=== PATIENT | male | born 1945 | race Caucasian/White ===

== ENCOUNTER 2019-01-01 06:16 | Observation (INO) ==
[2019-01-01] MEDS ORDERED: Nitroglycerin 0.4 MG TAB.SUBL SL STA (06:25)
[2019-01-01] MEDS ORDERED: Ondansetron 4 MG/2 ML VIAL IVP ONE ×2 (06:25→13:53)
[2019-01-01 09:00] LABS: INR 1.3; Prothrombin Time 15.2 Seconds (9.4-12.1)
[2019-01-01 09:08] LABS: Basophils % 0.2 %; Eosinophils # 0.1 K/mcL (0.0-0.6); Eosinophils % 0.8 %; Hemoglobin 13.5 g/dL (12.9-16.9); Immature Granulocytes % 0.5 % (0-4); Lymphocytes # 1.5 K/mcL (0.6-4.6); Lymphocytes % 12.8 %; Mean Corpuscular HGB Conc 35.5 g/dL (31.6-35.5); Mean Corpuscular Hemoglobin 34.2 pg (28.0-33.3); Mean Corpuscular Volume 96.2 fL (83.0-100.0); Monocytes # 0.7 K/mcL (0.0-1.3); Neutrophils # 9.2 K/mcL (1.6-8.9); Platelet Count 180 K/mcL (140-400); Red Blood Count 3.95 M/mcL (4.19-5.50); Red Cell Distribution Width 12.2 % (11.5-14.5); Segmented Neutrophils % 79.7 %; White Blood Count 11.6 K/mcL (4.3-11.1)
[2019-01-01 09:13] LABS: BUN/Creatinine Ratio 19 (6-26); Blood Urea Nitrogen 17 mg/dL (8-23); Calcium 9.4 mg/dL (8.6-10.3); Carbon Dioxide 23 mEq/L (23-29); Chloride 108 mEq/L (98-107); Glucose 116 mg/dL (70-105); Osmolality,Calculated 293 (280-300); Sodium 140 mEq/L (136-145); eGFR For African Americans > 60 (> 60); eGFR For Non-African Americans > 60 (> 60)
[2019-01-01] MEDS ORDERED: *HR* FentaNYL (PF) 100 MCG/2 ML VIAL IVP ONE (10:29)
[2019-01-01] MEDS: 0.9 % Sodium Chloride 1,000 ML IVC SCH ×2 (10:48→16:08)
[2019-01-01] MEDS ORDERED: *HR* OxyCODONE/APAP 7.5/325 TABLET PO PRN (11:23)
[2019-01-01] MEDS ORDERED: Acetaminophen 325 MG TABLET PO PRN (11:26)
[2019-01-01] MEDS ORDERED: MOM Conc 10 ML UD.LIQ PO PRN (11:26)
[2019-01-01] MEDS ORDERED: *HR* Promethazine 25 MG/ML VIAL IVP PRN ×2 (11:26→13:53)
[2019-01-01] MEDS ORDERED: traMADol 50 MG TABLET PO PRN (11:26)
[2019-01-01] MEDS ORDERED: Mag Hydrox/Al Hydrox/Simeth 30 ML UDC PO PRN (11:26)
[2019-01-01] MEDS ORDERED: Ondansetron 4 MG/2 ML VIAL IVP PRN (11:26)
[2019-01-01] MEDS ORDERED: Naloxone 0.4 MG/ML INJ IVP PRN (11:26)
[2019-01-01] MEDS ORDERED: *HR* Labetalol 20 MG/4 ML SYRINGE IVP PRN (13:53)
[2019-01-01] MEDS ORDERED: *HR* FentaNYL (PF) 100 MCG/2 ML VIAL IVP PRN (13:53)
[2019-01-01] MEDS ORDERED: *HR* Propofol 200 MG/20 ML VIAL IVP ONE (14:40)
[2019-01-01] MEDS ORDERED: Lidocaine -MPF 2% 2 ML VIAL ONE (14:41)
[2019-01-01] MEDS ORDERED: *HR* EPINEPHrine 1 MG/10 ML SYRINGE INTRATRACH PRN (15:03)
[2019-01-01 15:58] VITALS: BP 150/71
[2019-01-01] MEDS ORDERED: Furosemide 40 MG TABLET PO SCH (17:00)
[2019-01-01] MEDS ORDERED: Lisinopril 20 MG TABLET PO SCH (21:00)
[2019-01-01] MEDS ORDERED: Famotidine 20 MG TABLET PO SCH (21:00)
[2019-01-02] MEDS ORDERED: Folic Acid 1 MG TABLET PO SCH (09:00)
[2019-01-02] MEDS ORDERED: Aspirin Enteric Coated 81 MG Tablet PO SCH (09:00)
[2019-01-02] MEDS ORDERED: Metoprolol XL (24 HR) Succ 50 MG TAB.ER.24H PO SCH (09:00)
== END 2019-01-01 17:13 | disposition home or self-care (01) ==
LOC: EMEROOARM 06:16 → CDU 06:16 → SUATTDRO 10:26 → CDU 11:42 → 3BNU 15:00
PROVIDERS: ADMIT Internal Medicine; ATTEND Student in an Organized Health Care Education/Training Program
PROC: ENDOEBX (2019-01-01 12:20)